=== PATIENT | female | born 1955 | race Caucasian/White ===

== ENCOUNTER 2016-10-06 22:40 | Emergency (ER) | payer OTHER ==
[~2016-10-06] VITALS: Ht 165.1 cm; Wt 113.9 kg
--- NOTE | 2016-10-06 22:55 | NUR ---
Pt presents to ER with report of "possibly having shingles". Pt reports pain started Sunday on right side abdomen and extended to back with mild rash starting today. Pt denies discomfort at this time. No other concerns presented.
[2016-10-06] MEDS ORDERED: FAMCICLOVIR 250 MG PO ONE (23:55)
[2016-10-07] MEDS ORDERED: ED- HYDROcodone/ACETAMINOPHEN 5MG/325MG (NORCO) 6 TABLETS/BTL PO ONE (00:25)
[2016-10-07] MEDS ORDERED: HYDR-3702 PO (00:38)
[2016-10-07] MEDS ORDERED: FAMC500T17 PO (00:40)
--- NOTE | 2016-10-07 00:50 | NUR ---
Pt dismissed to home with instructions, prepack and prescriptions. Pt stated her understanding. No other concerns or needs. Pt left ambulatory to POV.
[2016-10-07] MEDS ORDERED: KCL10CCR PO (02:48)
[2016-10-07] MEDS ORDERED: ROSU20TA PO (02:48)
[2016-10-07] MEDS ORDERED: ASPI-894 PO (02:48)
[2016-10-07] MEDS ORDERED: LEVO5TAB12 PO (02:48)
[2016-10-07] MEDS ORDERED: FISH1CAP15 PO (02:48)
[2016-10-07] MEDS ORDERED: NF-XOP-HFA INH (02:48)
[2016-10-07] MEDS ORDERED: ESCI10TA49 PO (02:48)
[2016-10-07] MEDS ORDERED: FURO-125 PO (02:48)
[2016-10-07] MEDS ORDERED: THYR120T2 PO (02:48)
[2016-10-07] MEDS ORDERED: NYST30OI6 TOP (02:48)
[2016-10-07] MEDS ORDERED: MNTL10T PO (02:48)
[2016-10-07 02:49] VITALS: BP 126/67
== END 2016-10-07 00:50 | disposition home or self-care (01) ==
LOC: ED 22:45
DX: B02.9 Zoster without complications (principal)
CPT/HCPCS: 99282; 99283